=== PATIENT | female | born 1970 | race Caucasian/White ===

== ENCOUNTER 2018-02-14 15:49 | Outpatient (CLI) | payer BC | END 2018-02-14 15:50 | disposition home or self-care (01) | LOC: BICMAMMO 15:49 | PROVIDERS: ATTEND Family Medicine | DX: Z12.31 Encounter for screening mammogram for malignant neoplasm of breast (principal) | CPT/HCPCS: 77063; 77067 ==

== ENCOUNTER 2019-04-06 09:08 | Outpatient (CLI) | payer BC ==
--- NOTE | 2019-04-06 10:44 | MMO ---
Bilateral MAMMO Bilat Screen [facility]. CLINICAL HISTORY: Patient is 48 years old and is seen for screening. The patient has no family history of breast cancer. The patient has no personal history of cancer. VIEWS: The views performed were: bilateral craniocaudal with tomosynthesis and bilateral mediolateral oblique with tomosynthesis. FILMS COMPARED: The present examination has been compared to prior imaging studies performed at [facility] on 12/27/2014, 12/29/2015, 02/02/2017 and 02/14/2018. This study has been interpreted with the assistance of computer-aided detection. MAMMOGRAM FINDINGS: There are scattered fibroglandular densities. There are no suspicious masses, suspicious calcifications, or new areas of architectural distortion. IMPRESSION: THERE IS NO MAMMOGRAPHIC EVIDENCE OF MALIGNANCY. A ROUTINE FOLLOW-UP MAMMOGRAM IN 1 YEAR IS RECOMMENDED. THE RESULTS OF THIS EXAM WERE SENT TO THE PATIENT. ACR BI-RADS Category 1 - Negative MAMMOGRAPHY NOTE: 1. A negative mammogram report should not delay a biopsy if a dominant of clinically suspicious mass is present. 2. Approximately 10% to 15% of breast cancers are not detected by mammography. 3. Adenosis and dense breasts may obscure an underlying neoplasm. Reported by: PATRICK LANE MD Electonically Signed: [id number]
== END 2019-04-06 09:09 | disposition home or self-care (01) ==
LOC: BICMAMMO 09:08
PROVIDERS: ATTEND Family Medicine
DX: Z12.31 Encounter for screening mammogram for malignant neoplasm of breast (principal)
CPT/HCPCS: 77063; 77067

== ENCOUNTER 2019-07-18 11:20 | Outpatient (CLI) | payer BC ==
--- NOTE | 2019-07-18 13:18 | RAD ---
LEFT ANKLE 3 VIEWS: Date: 07/18/2019 HISTORY: Ankle pain. FINDINGS: Mild soft tissue swelling. No evidence of fracture. Prominent plantar spur from the calcaneus is note d. IMPRESSION: No acute fracture identified. POS: [facility]
--- NOTE | 2019-07-18 13:35 | RAD ---
LEFT FOOT 3 VIEWS: Date: 07/18/2019 HISTORY: Pain. FINDINGS: There is a prominent plantar spur from the calcaneus which measures up to 1.0 cm length. Tarsals otherwise unremarkable. There is mild degenerative change at the intertarsal and tarsometatar derian joints. MTP joints are unremarkable. No fracture or acute osseous abnormality seen. IMPRESSION: Prominent plantar spur from the calcaneus. Otherwise no acute process. POS: [facility]
== END 2019-07-18 11:21 | disposition home or self-care (01) ==
LOC: SCSRAD 11:20
PROVIDERS: ATTEND Family Medicine
DX: M79.672 Pain in left foot (principal); M77.32 Calcaneal spur, left foot

== ENCOUNTER 2020-01-24 12:31 | Outpatient (CLI) | payer BC ==
--- NOTE | 2020-01-24 13:10 | CT ---
Head CT without contrast 01/24/2020: COMPARISON: None HISTORY: Concussion, headaches, vertigo TECHNIQUE: Axial CT imaging at 5 mm intervals from vertex through skull base without contrast FINDINGS: The visualized paranasal sinuses and mastoid air cells appear well-aerated. No displaced ca lvarial fracture. No intracranial hemorrhage, midline shift, or mass effect. No ventricular enlargement. There is an area of subcortical hypodensity in the left frontal region on axial image 20 suggesting p rior trauma or prior ischemia. IMPRESSION: No acute findings. Subcortical hypodensity in the left frontal lobe suggests prior insult . If provided symptoms persist, follow-up brain MRI may be beneficial
== END 2020-01-24 12:32 | disposition home or self-care (01) ==
LOC: SCSCT 12:31
PROVIDERS: ATTEND Family Medicine
DX: S06.0X0A Concussion without loss of consciousness, initial encounter (principal); R51.9 Headache, unspecified
CPT/HCPCS: 70450

== ENCOUNTER 2020-02-08 09:36 | Outpatient (CLI) | payer BC ==
--- NOTE | 2020-02-08 11:07 | MRI ---
MRI BRAIN NONCONTRAST: DATE: 02/08/2020 HISTORY: 49-year-old female status post CVA. Abnormality found in left frontal lobe on recent CT. FINDINGS: There is no obstructive hydrocephalus. There is no midline shift or any other evidence of mass effect . There is no extra-axial fluid collection. There is a mild-moderate degree of T2-hyperintensities in the cerebral white matter consistent with chronic ischemic white matter changes due to microvascul ar atherosclerosis. There is no evidence of recent hemorrhage or restricted diffusion. There is a small to moderate size region of patchy signal abnormality, which is T2 hyperintense and F LAIR hyperintense, and T1 hypointense, without enhancement, at the lateral aspect of the left frontal lobe corresponding to the lesion found on CT, consistent with encephalomalacia and gliosis. T here is no hemosiderin stain associated with this, and therefore this is consistent with an old infarction rather than prior trauma. In the contralateral right middle frontal gyrus, there is one or perhaps a few very small old cortica l infarctions. IMPRESSION: 1) small to moderate-sized old infarction involving left middle cerebral artery territory, in the lef t lateral mid-upper frontal lobe corresponding to the lesion found on CT. 2) very small old cortical infarctions in the contralateral right middle frontal gyrus. 3) mild-moderate chronic ischemic white matter changes. 4) no acute intracranial findings
== END 2020-02-08 09:37 | disposition home or self-care (01) ==
LOC: SCSMRI 09:36
PROVIDERS: ATTEND Family Medicine
DX: I63.9 Cerebral infarction, unspecified (principal)
CPT/HCPCS: 70553

== ENCOUNTER 2024-02-23 12:39 | Outpatient (CLI) | payer BC | END 2024-02-23 12:40 | disposition home or self-care (01) | LOC: SCSRAD 12:39 | PROVIDERS: ATTEND Family Medicine | DX: R05.9 Cough, unspecified (principal) | CPT/HCPCS: 71046 ==

== ENCOUNTER 2025-03-14 09:18 | Outpatient (CLI) | payer BC | END 2025-03-14 09:19 | disposition home or self-care (01) | LOC: SCSRAD 09:18 | PROVIDERS: ATTEND Family Medicine | DX: R05.9 Cough, unspecified (principal) | CPT/HCPCS: 71046 ==